=== PATIENT | female | born 1980 | race Caucasian/White ===

== ENCOUNTER 2016-06-04 11:25 | Emergency (ER) | payer OTHER ==
[~2016-06-04] VITALS: Ht 157.5 cm; Wt 65.8 kg
[~2016-06-04 11:25] MED LIST: CLEOCIN HCL300 M1 PO; FLUOXETINE HCL20 M2; GABAPENTIN400 M2 PO; HYDROXYZINE PAM50 M1 PO; OLANZAPINE10 M1 PO; ROZEREM8 M1 PO
[2016-06-04 11:41] VITALS: BP 119/80
--- NOTE | 2016-06-04 12:37 | ED GI/GU/ABDOMINAL COMPLAINT ---
History of Present Illness General Chief Complaint: Nausea, Vomiting, Diarrhea Stated Complaint: N/V/D Source: patient Exam Limitations: no limitations Vital Signs & Intake/Output Vital Signs & Intake/Output Vital Signs Date Time Temp Pulse Resp B/P B/P Pulse O2 O2 Flow FiO2 Mean Ox Delivery Rate 06/04 1141 98.2 100 20 119/80 100 Room Air Allergies Coded Allergies: morphine (Severe, RASH AND SWELLING 12/29/15) acetaminophen (From VICODIN) (Mild, RASH 12/29/15) hydrocodone (From VICODIN) (Mild, RASH 12/29/15) ibuprofen (Mild, RASH 12/29/15) ketorolac (From TORADOL) (Mild, RASH 12/29/15) tramadol (Mild, RASH 12/29/15) Penicillins (HIVES 12/29/15) codeine (RASH, VOMITING 12/29/15) venom-honey bee (ANAPHYLAXIS 12/29/15) Reconcile Medications Acetaminophen (Tylenol) 325 MG TABLET 1 TAB PO TID PRN PAIN Clindamycin HCl (Cleocin HCl) 300 MG CAPSULE 1 CAP PO TID GUM EXTRACTION Fluoxetine HCl (Unknown Strength) CAPSULE (Unknown Dose) UNKNOWN (Reported) Gabapentin 400 MG CAPSULE 1 CAP PO 4 TIMES/DAY HEADACHES/NERVES (Reported) Hydroxyzine Pamoate 50 MG CAPSULE 1 CAP PO 4 TIMES/DAY ANXIETY (Reported) Olanzapine 10 MG TABLET 1 TAB PO QPM MENTAL HEALTH (Reported) Ondansetron HCl (Zofran) 4 MG TABLET 1 TAB PO TID PRN NAUSEA Ramelteon (Rozerem) 8 MG TABLET 1 TAB PO QPM SLEEP (Reported) Triage Note: PT TO ED C/O N/V/D AND "MAJOR PAINS". ALSO C/O HEADACHE. Triage Nurses Notes Reviewed? yes ? N Is pt currently ? No Onset: Abrupt Duration: constant Timing: recent history Severity Numbers: 10 Location: right lower quadrant Activities at Onset: none HPI: Patient is a 36-year-old female who presents emergency room with a four-day history of persistent acute onset of right lower quadrant pain. Patient states that she has not been able tolerate anything by mouth. Patient has persistent nausea. Denies any fever chills chest pain shortness of breath cough. Patient does state the pain does radiate to her back. Denies any dysuria hematuria vaginal bleeding or vaginal discharge. Patient states that she has not taken any medications for symptoms. (SUSY WEN) Past History Travel History Traveled to [place] past 21 day No Medical History Any Pertinent Medical History? see below for history Psychiatric: bipolar disease, depression, PTSD Surgical History Surgical History: non-contributory Psychosocial History What is your primary language French Tobacco Use: Current Daily Use Daily Tobacco Use Amount/Type: => 5 Cigarettes daily ETOH Use: denies use Illicit Drug Use: denies illicit drug use Family History Hx Contributory? No (SUSY WEN) Review of Systems Review of Systems Constitutional: Reports: no symptoms. EENTM: Reports: no symptoms. Respiratory: Reports: no symptoms. Cardiovascular: Reports: no symptoms. GI: Reports: see HPI, abdominal pain. Genitourinary: Reports: no symptoms. Musculoskeletal: Reports: no symptoms. Skin: Reports: no symptoms. Neurological/Psychological: Reports: no symptoms. Hematologic/Endocrine: Reports: no symptoms. Immunologic/Allergic: Reports: no symptoms. All Other Systems: Reviewed and Negative (SUSY WEN) Physical Exam Physical Exam General Appearance: no apparent distress Gastrointestinal: normal bowel sounds, soft Comments: Well-developed well-nourished person in no acute distress HEENT: Normal EENT exam, Neck: Supple, no lymphadenopathy, normal range of motion without pain or tenderness Back: Nontender, no CVA tenderness. Cardiovascular: Regular rate and rhythms no murmurs rubs or gallops, normal JVP Respiratory: Chest nontender. No respiratory distress.breath sounds clear to auscultation bilaterally Abdomen: Moderate right lower quadrant pain, BS X 4 No peritoneal signs Extremity: No edema, no calf tenderness to palpation, normal and equal pulses. Neuro: Alert oriented x3, motor sensory normal, Skin: No appreciable rash on exposed skin, skin is warm and dry. Psych: Mood and affect is normal, memory and judgment is normal. Core Measures ACS in differential dx? No Severe Sepsis Present: No Septic Shock Present: No (SUSY WEN) Progress Differential Diagnosis: AAA, AMI, appendicitis, biliary colic, bowel obstruction , colon cancer, cholecystitis, diverticulitis, ectopic , endometritis, esophageal varices, gastritis, hepatitis, hernia, hemorrhoids, ischemic bowel, inflamm bowel dis, intrauterine , kidney stone, Mary-Connie tear, ovarian cyst, ovarian torsion, pancreatitis, PID/cervicitis, peptic ulcer, PUD/ GERD, perforated viscous, SBO, threatened AB, UTI/pyelo Plan of Care: Orders Procedure Date/time Status URINE 06/04 1154 Complete URINE DRUG SCREEN FOR ER ONLY 06/04 1154 Complete URINALYSIS 06/04 1154 Complete LIPASE 06/04 1154 Complete COMPREHENSIVE METABOLIC PANEL 06/04 1154 Complete CBC WITHOUT DIFFERENTIAL 06/04 1154 Complete AMYLASE 06/04 1154 Complete Laboratory Tests 06/04/16 1318: Anion Gap 13, Estimated GFR > 60, BUN/Creatinine Ratio 11.4, Glucose 88, Calcium 9.0, Total Bilirubin 0.8, AST 19, ALT 35, Alkaline Phosphatase 72, Total Protein 6.6, Albumin 3.8, Globulin 2.8, Albumin/Globulin Ratio 1.4, Amylase 33, Lipase 67, CBC w Diff NO MAN DIFF REQ, RBC 4.58, MCV 88.4, MCH 29.9, RDW 13.0, MPV 8.3, Gran % 71.9, Lymphocytes % 22.1, Monocytes % 3.6, Eosinophils % 2.1, Basophils % 0.3, Absolute Granulocytes 6.6 H, Absolute Lymphocytes 2.0, Absolute Monocytes 0.3, Absolute Eosinophils 0.2, Absolute Basophils 0, PUBS MCHC 33.8 06/04/16 1307: Urine Opiates Screen < 100.00, Methadone Screen < 40, Barbiturate Screen < 60, Ur Phencyclidine Scrn < 6.00, Amphetamines Screen 133, U Benzodiazepines Scrn < 85, Urine Cocaine Screen < 50, Urine Cannabis Screen 17.50, Urinalysis LIGHT H, Urine Color YEL, Urine Clarity HAZY H, Urine pH 6.5, Ur Specific [place] 1.010, Urine Protein NEG, Urine Ketones NEG, Urine Nitrite NEG, Urine Bilirubin NEG, Urine Urobilinogen 0.2, Ur Leukocyte Esterase TRACE H, Ur Microscopic SEDIMENT EXAMINED, Urine RBC 3-5, Urine WBC 5-10 H, Ur Epithelial Cells MOD H, Urine Bacteria MOD H, Urine Mucus MOD H, Urine Hemoglobin TRACE-LYSED, Urine Glucose NEG, Urine Test NEGATIVE Patient was evaluated on multiple occasions noted to be in no apparent distress. Patient was requesting specifically narcotics upon arrival in which patient's lab work and CT scan was unremarkable for acute process. Patient was able tolerate by mouth After discussing with patient about the disposition and plan she was adamantly requesting multiple narcotics with this time I did not feel medically warranted to administer narcotics for patients abdominal pain with no specific etiology for her pain. Patient prior to discharge also was requesting sandwich Upon discharge patient looks well no apparent distress (RALPH BLACKWOOD,SUSY) Diagnostic Imaging: Viewed by Me: CT Scan. Radiology Impression: no acute abnormality Initial ED EKG: none Comments: PATIENT: LIBERTY ROGERS PRESENT AGE: 36 PATIENT ACCOUNT NO: [id number] : 79 LOCATION: ER ORDERING PHYSICIAN: SUSY BLACKWOOD SERVICE DATE: 06/04/16 EXAM TYPE: CAT - CT ABD & PELVIS W IV CONTRAST EXAMINATION: CT ABDOMEN AND PELVIS WITH CONTRAST CLINICAL INFORMATION: Right lower quadrant pain. COMPARISON: None TECHNIQUE: Multidetector volumetric imaging was performed of the abdomen and pelvis before and after the IV administration of 94 mL of Optiray 320 intravenous contrast. Sagittal and coronal reformatted images were obtained on the technologist's workstation. DLP: 287 mGy-cm FINDINGS: LUNG BASES: Minimal dependent atelectasis. LIVER, GALLBLADDER, AND BILIARY TREE: Multiple hypoattenuating hepatic lesions are identified. A few of these, including the 1.6 cm lesion within hepatic segment 5 on image 21/ of series 2, demonstrate discontinuous peripheral nodular enhancement, most compatible with hemangiomas. Others, such as the 1.2 cm hypoattenuating lesion near the falciform ligament in segment 4A are more indeterminate, possibly cysts. The hypoattenuating 2.4 cm lesion in the anterior aspect of hepatic segment 4A on image 21/ of series 2 may represent focal fatty infiltration. Liver is normal in size and contour. No biliary ductal dilatation. The gallbladder is decompressed with no evidence of radiopaque gallstones, gallbladder wall thickening, or obvious pericholecystic inflammatory changes. PANCREAS: Unremarkable. SPLEEN: Borderline enlarged, measuring 14.1 cm in diameter. ADRENAL GLANDS: Unremarkable. KIDNEYS AND URETERS: Numerous small renal calculi are present bilaterally. The largest in the right kidney is situated in the lower pole calyx measures 0.6 cm in diameter. The largest in the left kidney is a 4 mm calculus within a lower pole calyx. Approximately 10 calculi are present in the left kidney and 9 in the right kidney. No hydronephrosis or hydroureter. No ureteral calculi are identified. A 1.3 cm cyst is present in the upper pole of the right kidney and is simple in appearance within a smaller adjacent cyst just beneath it. A exophytic 2 cm cyst is present in the upper pole the left kidney. Multiple additional subcentimeter cysts are present in both kidneys, too small to characterize. No suspicious lesions. BLADDER: Unremarkable. GASTROINTESTINAL TRACT: Stomach, small bowel, and colon are normal in caliber. No bowel wall thickening. No surrounding inflammatory changes are identified. Appendix is normal. No intraperitoneal free fluid or free air. ABDOMINAL WALL: No significant hernia is appreciated. LYMPH NODES: Normal. VASCULAR: Unremarkable. PELVIC VISCERA: The uterus and adnexa are unremarkable. OSSEOUS STRUCTURES: Unremarkable. IMPRESSION: 1. Bilateral nephrolithiasis without evidence of obstructive uropathy. No ureteral calculi ureter/hydronephrosis. 2. No acute intra-abdominal or intrapelvic abnormalities are identified. Normal appendix. 3. Multiple hypoattenuating lesions throughout the liver measuring up to 2.4 cm in diameter. These likely represent a combination of hemangiomas, cysts, and focal fatty sparing, though the lesions are indeterminate by this CT study. Follow-up MRI of the liver with and without contrast is advised for definitive characterization. 4. Borderline splenomegaly. (SUSY WEN) Departure Departure Disposition: HOME OR SELF CARE Condition: Stable Clinical Impression Primary Impression: Abdominal pain Referrals: CECILIA RAMIREZ,HILLARY Pimentel. PATIENT HAS NO PRIMARY CARE DR (PCP/Family) Additional Instructions: As discussed begin the prescription of Tylenol for pain and Zofran for nausea If no better on Thursday follow-up with inkjet operator Dr. BROOKS. If symptoms worsen return to emergency room. Begin eating and drinking well healthy balanced diet. PRESCRIPTIONS WAITING AT [facility] Departure Forms: Customer Survey General Discharge Information Prescriptions: Current Visit Scripts Acetaminophen (Tylenol) 1 TAB PO TID PRN PAIN #20 TAB Ondansetron HCl (Zofran) 1 TAB PO TID PRN NAUSEA #15 TAB (SUSY WEN) PA/FIRE CREW WORKER Co-Sign Statement Statement: ED Attending supervision documentation- [] I saw and evaluated the patient. I have also reviewed all the pertinent lab results and diagnostic results. I agree with the findings and the plan of care as documented in the PA's/FIRE CREW WORKER's documentation. [X] I have reviewed the ED Record and agree with the PA's/FIRE CREW WORKER's documentation. [] Additions or exceptions (if any) to the PAs/FIRE CREW WORKER's note and plan are summarized below: [] (WALT RAMIREZ,CATIA)
[2016-06-04 13:28] LABS: ABSOLUTE BASOPHIL COUNT 0 /CUMM (0.0-0.2); ABSOLUTE EOSINOPHIL COUNT 0.2 /CUMM (0.0-0.7); ABSOLUTE GRANULOCYTE CT 6.6 /CUMM (1.4-6.5); ABSOLUTE MONOCYTE COUNT 0.3 /CUMM (0.10-0.60); BASOPHIL % 0.3 % (0.0-2.0); EOSINOPHIL % 2.1 % (0-5); GRANULOCYTE % 71.9 % (42.2-75.2); HEMATOCRIT 40.5 % (37-47); MEAN CORPUSCULAR HGB 29.9 PG (27.0-31.0); MEAN CORPUSCULAR HGB CONC 33.8 G/DL (33.0-37.0); MEAN CORPUSCULAR VOLUME 88.4 FL (81.0-99.0); MEAN PLATELET VOLUME 8.3 FL (7.4-10.4); PLATELET COUNT 264 /CUMM (130-400); RED BLOOD CELL CT 4.58 /CUMM (4.20-5.40); WHITE BLOOD CELL COUNT 9.1 /CUMM (4.8-10.8)
--- NOTE | 2016-06-04 14:55 | CT SCAN REPORT ---
EXAMINATION: CT ABDOMEN AND PELVIS WITH CONTRAST CLINICAL INFORMATION: Right lower quadrant pain. COMPARISON: None TECHNIQUE: Multidetector volumetric imaging was performed of the abdomen and pelvis before and after the IV administration of 94 mL of Optiray 320 intravenous contrast. Sagittal and coronal reformatted images were obtained on the technologist's workstation. DLP: 287 mGy-cm FINDINGS: LUNG BASES: Minimal dependent atelectasis. LIVER, GALLBLADDER, AND BILIARY TREE: Multiple hypoattenuating hepatic lesions are identified. A few of these, including the 1.6 cm lesion within hepatic segment 5 on image 21/91 of series 2, demonstrate discontinuous peripheral nodular enhancement, most compatible with hemangiomas. Others, such as the 1.2 cm hypoattenuating lesion near the falciform ligament in segment 4A are more indeterminate, possibly cysts. The hypoattenuating 2.4 cm lesion in the anterior aspect of hepatic segment 4A on image 21/91 of series 2 may represent focal fatty infiltration. Liver is normal in size and contour. No biliary ductal dilatation. The gallbladder is decompressed with no evidence of radiopaque gallstones, gallbladder wall thickening, or obvious pericholecystic inflammatory changes. PANCREAS: Unremarkable. SPLEEN: Borderline enlarged, measuring 14.1 cm in diameter. ADRENAL GLANDS: Unremarkable. KIDNEYS AND URETERS: Numerous small renal calculi are present bilaterally. The largest in the right kidney is situated in the lower pole calyx measures 0.6 cm in diameter. The largest in the left kidney is a 4 mm calculus within a lower pole calyx. Approximately 10 calculi are present in the left kidney and 9 in the right kidney. No hydronephrosis or hydroureter. No ureteral calculi are identified. A 1.3 cm cyst is present in the upper pole of the right kidney and is simple in appearance within a smaller adjacent cyst just beneath it. A exophytic 2 cm cyst is present in the upper pole the left kidney. Multiple additional subcentimeter cysts are present in both kidneys, too small to characterize. No suspicious lesions. BLADDER: Unremarkable. GASTROINTESTINAL TRACT: Stomach, small bowel, and colon are normal in caliber. No bowel wall thickening. No surrounding inflammatory changes are identified. Appendix is normal. No intraperitoneal free fluid or free air. ABDOMINAL WALL: No significant hernia is appreciated. LYMPH NODES: Normal. VASCULAR: Unremarkable. PELVIC VISCERA: The uterus and adnexa are unremarkable. OSSEOUS STRUCTURES: Unremarkable. IMPRESSION: 1. Bilateral nephrolithiasis without evidence of obstructive uropathy. No ureteral calculi ureter/hydronephrosis. 2. No acute intra-abdominal or intrapelvic abnormalities are identified. Normal appendix. 3. Multiple hypoattenuating lesions throughout the liver measuring up to 2.4 cm in diameter. These likely represent a combination of hemangiomas, cysts, and focal fatty sparing, though the lesions are indeterminate by this CT study. Follow-up MRI of the liver with and without contrast is advised for definitive characterization. 4. Borderline splenomegaly.
[2016-06-04] MEDS ORDERED: ZOFRAN4 M2 PO (15:42)
[2016-06-04] MEDS ORDERED: TYLENOL325 M1 PO (15:42)
== END 2016-06-04 14:40 ==
LOC: ERH 11:25
PROVIDERS: Physician Assistant
DX: R10.32 Left lower quadrant pain (principal)
CPT/HCPCS: 74177; 80307; 81001; 81025; 96374; 96375; J2405; Q9965